=== PATIENT | female | born 1950 | race Hispanic/Latino ===

== ENCOUNTER 2019-09-27 13:21 | Observation (INO) | payer OTHER ==
[~2019-09-27] VITALS: Ht 160 cm; Wt 88.0 kg
[~2019-09-27 13:21] MED LIST: AMOXICILLIN250 MG PO; ATELVIA35 MG PO; ESTRADIOL1 MG PO; HYDROCHLOROTHIA25 MG PO; LANSOPRAZOLE30 MG PO; LOSARTAN-HCTZ1 EAC1 PO; METOPROLOL TART50 MG PO; SIMVASTATIN20 MG PO; SYNTHROID112 MCG PO; [UNRECOGNIZED DRUG - OTHER] PO
--- OUTSIDE RECORDS SUMMARY | 2019-09-27 13:25 | XMS REPORT ---
Author Author [facility] t Organization [facility] Address Unknown Phone Unavailable Care Team Providers Care Lean Leader Name Role Phone Unavailable Unavailable Payers Payer Name Policy Type Policy Number Effective Date Expiration D ate Problems This patient has no known problems. Allergies, Adverse Reactions, Alerts Allergy Name Allergy Type Status Severity Reaction(s) Onset Date Inacti ve Date Treating Clinician Comments No Known Allergies DA Active U 2016-11-03 00:00:00 Medications This patient has no known medications. Results Test Description Test Time Test Comments Text Results Atomic Results Result Comments TROPONIN-I 2019-02-19 09:10:00 TROPONIN-I (test code = TROPI) 0.051 ng/mL 0-0.045 [id number] 08:29:00* Test Item Value Reference Range Comments GLUBED (test code = GLUBED) 108 mg/dL 74-106 Perf ormed by certified robotic machine operator at [facility] ([facility] [id number] 06:10:00* Test Item Value Reference Range Comments TROPONIN-I (test code = TROPI) 0.069 ng/mL 0-0.045 R esults called to [id number] by SASCHA 02/19/19 0610Critical results verified and read back by Nurse? Y [id number] 19:50:00* Test Item Value Reference Range Comments TROPONIN-I (test code = TROPI) <0.015 ng/mL 0.00-0.056 BASIC METABOLIC [id number] 18:08:00* Test Item Value Reference Range Comments SODIUM (test code = NA) 144 mmol/L 136-145 POTASSIUM (test code = K) 3.7 mmol/L 3.5-5.1 CHLORIDE (test code = CL) 105 mmol/L 101-109 CARBON DIOXIDE (test code = CO2) 28.9 mmol/L 21-32 ANION GAP (test code = GAP) 14 mmol/L 10-20 GLUCOSE (test code = GLU) 97 mg/dL 74-106 BLOOD UREA NITROGEN (test code = BUN) 17 mg/dL 3-21 GLOMERULAR FILTRATION RATE (test code = GFR) 60 mL/min >=6 0 Estimated GFR by using Modified MDRD formula.Chronic kidney disease is defined as either kidney damageor GFR <60 mL/min/1.73 m2 for >3 months. CREATININE (test code = CREAT) 0.93 mg/dL 0.55-1.3 BUN/CREATININE RATIO (test code = BUN/CREA) 18.3 10-2 0 CALCIUM (test code = CA) 9.2 mg/dL 8.4-10.2 CBC W/AUTO [id number] 18:01:00* Test Item Value Reference Range Comments WHITE BLOOD CELL (test code = WBC) 8.8 K/mm3 4.5-12.5 RED BLOOD CELL (test code = RBC) 4.59 mill/mm3 3.7-5.2 HEMOGLOBIN (test code = HGB) 13.9 gram/dL 11.5-15.5 HEMATOCRIT (test code = HCT) 43.4 % 36.0-46.0 MEAN CELL VOLUME (test code = MCV) 94.6 fL 80-98 MEAN CELL HGB (test code = MCH) 30.3 picogram 27.0-33.0 MEAN CELL HGB CONCETRATION (test code = MCHC) 32.0 gram/dL 33 .0-36.0 RED CELL DISTRIBUTION WIDTH (test code = RDW) 13.2 % 11 .6-16.2 RED CELL DISTRIBUTION WIDTH SD (test code = RDW-SD) 46.7 fL 37.0-51.0 PLATELET COUNT (test code = PLT) 273 K/mm3 150-450 MEAN PLATELET VOLUME (test code = MPV) 10.3 fL 6.7-11.0 NEUTROPHIL % (test code = NT%) 60.2 % 39.0-69.0 LYMPHOCYTE % (test code = LY%) 27.9 % 25.0-55.0 MONOCYTE % (test code = MO%) 10.0 % 0.0-10.0 EOSINOPHIL % (test code = EO%) 1.5 % 0.0-5.0 BASOPHIL % (test code = BA%) 0.3 % 0.0-1.0 NEUTROPHIL # (test code = NT#) 5.32 K/mm3 1.8-7.7 LYMPHOCYTE # (test code = LY#) 2.47 K/mm3 1.0-5.0 MONOCYTE # (test code = MO#) 0.88 K/mm3 0-0.8 EOSINOPHIL # (test code = EO#) 0.13 K/mm3 0.0-0.5 BASOPHIL # (test code = BA#) 0.03 K/mm3 0.0-0.2 MANUAL DIFF REQUIRED (test code = MDIFF) NO - CT HEAD/BRAIN W/O [id number] 17:31:00 Name: SIDNEY WHITE [facility] : 1950 Age/S: 69 / F [address] [facility] Unit #: [id number] Loc: [place]andra Zimmer [address] Phys: Rivera Jhaveri MD Acct: [id number] Dis Date: Status: PRE ER PHONE #: [phone] Exam Date: 02/18/2019 1725 FAX #: [phone] Reason: headache EXAMS: CPT CODE: [id number] CT HEAD/BRAIN W/O CONT [id number] EXAM: CT of the head without contrast; INFORMATION: Headache; TECHNIQUE AND FINDINGS: CT dose reduction protocol; 2.5 mm axial scans. There is no evidence of intra or extra-axial hemorrhage, mass lesions or midline shift. Minimal periventricular hypodensities; otherwise, unremarkable zabala/white matter differentiation. Ventricles are symmetric and of normal diameter; sulci and basilar cisterns are intact. The calvarium is intact. IMPRESSION: 1. No evidence of intracranial hemorrhage or acute territorial infarction. 2. Minimal chronic ischemic white matter changes. at 1731 Reported and signed by: Martin Yoon M.D. CC: Rivera Jhaveri MD Technologist:Alicja Fletcher CTDI: DLP: Trnscb Date/Time: 02/18/2019 (1058) Marjorie Orig Print D/T: S: 02/18/2019 (7370) PAGE 1 Signed Report
[2019-09-27] MEDS ORDERED: ASPIRIN 81 MG CHEW TAB PO ONE (14:00)
[2019-09-27 14:22] LABS: BASOPHILS % 0.3 % (0.0-1.0); EOSINOPHILS # (AUTO) 0.1 (0.0-0.4); HEMATOCRIT 40.3 % (34.2-44.1); HEMOGLOBIN 13.3 g/dL (12.0-16.0); LYMPHOCYTES # (AUTO) 3.7 (1.0-3.2); LYMPHOCYTES % 30.1 % (18.0-39.1); MEAN CORPUSCULAR HEMOGLOBIN 31.3 pg (28-32); MEAN CORPUSCULAR VOLUME 94.8 fL (81-99); MONOCYTES # (AUTO) 1.3 (0.2-0.8); MONOCYTES % 10.8 % (4.4-11.3); NEUTROPHILS % 57.3 % (38.7-80.0); PLATELET COUNT 297 x10e3/uL (140-360); RED BLOOD COUNT 4.25 x10e6/uL (3.6-5.1); RED CELL DISTRIBUTION WIDTH 14.2 % (11.7-14.4)
[2019-09-27 14:36] LABS: INR 0.86; PROTHROMBIN TIME 12.2 seconds (11.9-14.5)
[2019-09-27 14:37] LABS: PARTIAL THROMBOPLASTIN TIME 26.8 seconds (23.8-35.5)
[2019-09-27] MEDS ORDERED: DETROL LA4 MG PO (15:00)
[2019-09-27] MEDS ORDERED: ASPIR 8181 MG PO (15:00)
[2019-09-27] MEDS ORDERED: IRBESARTAN-HCT1 EACH PO (15:00)
[2019-09-27] MEDS ORDERED: PEPCID20 MG PO (15:00)
[2019-09-27] MEDS ORDERED: ATORVASTATIN CA20 MG PO (15:00)
[2019-09-27] MEDS ORDERED: ONDANSETRON HCL INJ 2MG/ML 2ML 2 MG/ML VIAL IV PRN (15:15)
[2019-09-27] MEDS ORDERED: NITROGLYCERIN 0.4 MG SUBL SL PRN (15:15)
[2019-09-27 15:17] LABS: ALANINE AMINOTRANSFERASE 16 IU/L (0-55); ALBUMIN 3.6 g/dL (3.5-5.0); ALKALINE PHOSPHATASE 69 IU/L (40-150); ANION GAP 14.6 mmol/L (8-16); BLOOD UREA NITROGEN 15 mg/dL (7-26); BUN/CREATININE RATIO 17 (6-25); CALCIUM 9.8 mg/dL (8.4-10.2); CARBON DIOXIDE 26 mmol/L (22-29); CHLORIDE 102 mmol/L (98-107); CREATINE KINASE 81 IU/L (29-168); CREATININE, SERUM 0.88 mg/dL (0.57-1.11); EST GLOMERULAR FILTRATION RATE > 60 ML/MIN (60-); GLUCOSE 95 mg/dL (74-118); POTASSIUM 3.6 mmol/L (3.5-5.1); SODIUM 139 mmol/L (136-145)
--- NOTE | 2019-09-27 15:34 | Diagnostic Imaging Report ---
EXAMINATION: Head CT HISTORY: Blurry vision, hypertension COMPARISON: None. TECHNIQUE: Helical axial images of the head were obtained. Reformatted coronal and sagittal images from the axial data. Dose modulation, iterative reconstruction, and/or weight based adjustment of the mA/kV was utilized to reduce the radiation dose to as low as reasonably achievable. Image quality: Motion/streaking artifact limits the evaluation of the skull base and posterior cranial fossa. FINDINGS: Parenchyma: 1. No abnormal densities. 2. No mass or hemorrhage. No CT evidence of acute territorial vascular insult. Extra-axial spaces:No abnormal density. No extra-axial fluid collections Brain volume: Normal for age. Ventricles: No hydrocephalus or displacement. Arteries: No density suggestive of thrombus. Dural sinuses: No abnormal density. Foramen magnum: No mass, Chiari malformation, or basilar invagination. Sella: No obvious mass. Paranasal/mastoid sinuses: Imaged portions unremarkable. Skull/Scalp: No lytic or blastic lesions. No fractures. IMPRESSION: No intracranial abnormalities, particularly no hemorrhage. Signed by: Dr. Anabell Munroe M.D. on 09/27/2019 3:30 PM
--- NOTE | 2019-09-27 15:34 | Diagnostic Imaging Report ---
EXAMINATION: CHEST SINGLE (PORTABLE) INDICATION: Hypertension COMPARISON: None FINDINGS: LINES/TUBES:EKG leads overlie the chest. LUNGS:The lungs are well-inflated. No focal consolidation or pulmonary edema. PLEURA:No pleural effusion or pneumothorax. MEDIASTINUM:The cardiomediastinal silhouette appears normal in size and shape. BONES/SOFT TISSUES:No acute osseous injury. ABDOMEN:No free air under the diaphragm. IMPRESSION: No focal pneumonia or pulmonary edema. Signed by: Samira Mcclain MD on 09/27/2019 3:31 PM
[2019-09-27 15:59] LABS: THYROID STIMULATING HORMONE 0.457 uIU/mL (0.350-4.940)
[2019-09-27 16:35] VITALS: BP 151/91
[2019-09-27 16:40] VITALS: BP 150/88
--- NOTE | 2019-09-27 16:40 | NUR ---
Pt received from ER at this time. Pt is aox3 and mostly [place] speaking. Denies any pain at this time. 0 s/s of acute distress noted. Pt is ambulatory, skin is intact.
[2019-09-27] MEDS ORDERED: METOPROLOL TARTRATE 50 MG TAB PO SCH (17:00)
[2019-09-27 18:15] LABS: CREATINE KINASE 77 IU/L (29-168)
[2019-09-27] MEDS: FAMOTIDINE 20 MG TAB PO SCH (18:45)
--- NOTE | 2019-09-27 19:00 | NUR ---
RECEIVED PATIENT IN BEDSIDE REPORT. PATIENT A&OX3. SPEAKS THAI, BUT UNDERSTANDS AND CAN COMMUNICATE IN INDONESIAN. NO PAIN REPORTED. NO S&S OF DISTRESS NOTED. BED LOCKED IN LOWEST POSITION, SIDE RAILS UPX2, CALL LIGHT IN REACH.
[2019-09-27 20:00] VITALS: BP 153/79
[2019-09-27 20:39] VITALS: BP 153/79
[2019-09-27] MEDS ORDERED: ATORVASTATIN 20 MG TAB PO SCH (21:00)
[2019-09-27] MEDS: METOPROLOL TARTRATE 50 MG TAB PO SCH (21:41)
--- NOTE | 2019-09-27 23:11 | Consultation ---
DATE OF CONSULTATION: 09/27/2019 Cardiology Consultation REASON FOR CONSULTATION: Chest pain. HISTORY OF PRESENT ILLNESS: A 69-year-old woman with history of anxiety, impaired fasting glucose/prediabetes, hyperlipidemia, hypertension, morbid obesity, presents with complaints of left upper extremity discomfort in the setting of elevated blood pressure reads. Reportedly, has systolic blood pressure over 200 at home. She reports labile blood pressure, which she somewhat correlates to anxiety episodes. She has had previous reassuring readings at her PCP's office according to her description. She has no other complaints at this time. She has currently no chest discomfort or upper extremity discomfort. She denies any exertional symptoms. ALLERGIES: NO KNOWN DRUG ALLERGIES. PAST MEDICAL HISTORY: Hypertension, hypothyroidism, dyslipidemia, history of overactive bladder. SURGICAL HISTORY: Cholecystectomy and hysterectomy. FAMILY HISTORY: Noncontributory. REVIEW OF SYSTEMS: A 12-system review is negative except for as per HPI. PHYSICAL EXAMINATION: VITAL SIGNS: Temperature 98.1, heart rate 80, respiratory rate 20, blood pressure 151/91, O2 saturation 97% on room air. GENERAL: In no acute distress, alert. NECK: No JVD. CHEST: Clear to auscultation. CARDIOVASCULAR: Regular rate and rhythm. Normal S1 and S2. No S3. No S4. No murmurs. No rubs. ABDOMEN: Soft. Bowel sounds positive. EXTREMITIES: No edema. CARDIOVASCULAR MEDICATIONS: Reviewed. Metoprolol tartrate 50 mg b.i.d., hydrochlorothiazide 12.5 mg daily, Avapro 150 mg daily, atorvastatin 20 mg every night at bedtime, aspirin 81 mg daily, and nitroglycerin p.r.n. STUDIES: Reviewed. White blood cells 12.1, hemoglobin 13.3, platelets 297. PT 12.2, INR 0.86, PTT 26.8. Sodium 139, potassium 3.6, chloride 102, bicarbonate 26, BUN 15, creatinine 0.8, glucose 95, calcium 9.8. Serial troponins negative. AST 20, ALT 16, TSH 0.4. ASSESSMENT AND PLAN: 1. Left upper extremity atypical discomfort/chest discomfort in the setting of uncontrolled hypertension. 2. Anxiety. 3. Impaired fasting glucose. 4. Dyslipidemia. 5. Morbid obesity. Recommend: 1. The patient has ruled out with serial cardiac biomarkers for AMI. Obtain echocardiogram. Continue rest of cardiovascular medications with the following adjustment, titrate metoprolol to 50 mg t.i.d. 2. Outpatient stress test advised. MD FER Ceballos/FADAI /[id number]
[2019-09-28] VITALS: BP 159/91
[2019-09-28 02:50] LABS: CREATINE KINASE 74 IU/L (29-168)
[2019-09-28 04:00] VITALS: BP 156/98
[2019-09-28 05:37] LABS: BASOPHILS % 0.4 % (0.0-1.0); EOSINOPHILS # (AUTO) 0.1 (0.0-0.4); EOSINOPHILS % 0.9 % (0.0-6.0); HEMATOCRIT 40.3 % (34.2-44.1); HEMOGLOBIN 13.3 g/dL (12.0-16.0); LYMPHOCYTES # (AUTO) 3.2 (1.0-3.2); LYMPHOCYTES % 31.3 % (18.0-39.1); MEAN CORPUSCULAR HEMOGLOBIN 31.4 pg (28-32); MONOCYTES # (AUTO) 1.2 (0.2-0.8); MONOCYTES % 11.5 % (4.4-11.3); NEUTROPHILS # (AUTO) 5.7 (2.1-6.9); NEUTROPHILS % 55.5 % (38.7-80.0); PLATELET COUNT 296 x10e3/uL (140-360); RED BLOOD COUNT 4.24 x10e6/uL (3.6-5.1); RED CELL DISTRIBUTION WIDTH 14.1 % (11.7-14.4)
[2019-09-28 06:00] LABS: CREATINE KINASE 72 IU/L (29-168)
[2019-09-28] MEDS ORDERED: LEVOTHYROXINE SODIUM 112 MCG TAB PO SCH (06:00)
[2019-09-28 06:05] LABS: ALBUMIN 3.6 g/dL (3.5-5.0); ANION GAP 13.2 mmol/L (8-16); CALCIUM 10.2 mg/dL (8.4-10.2); CHOL/HDL RATIO 4.3 (3.0-3.6); CREATININE, SERUM 0.95 mg/dL (0.57-1.11); POTASSIUM 4.2 mmol/L (3.5-5.1)
--- NOTE | 2019-09-28 07:00 | NUR ---
RECEIVED PATIENT AWAKE AT THIS TIME. NO S/S OF DISTRESS. BED LOW, WHEELS LOCKED, SIDE RAILS X2. CALL LIGHT IN REACH WILL CONTINUE TO MONITOR PATIENT.
[2019-09-28 08:00] VITALS: BP 172/103
[2019-09-28] MEDS: METOPROLOL TARTRATE 50 MG TAB PO SCH (08:04)
[2019-09-28] MEDS: FAMOTIDINE 20 MG TAB PO SCH (08:04)
[2019-09-28 08:37] VITALS: BP 172/103
[2019-09-28] MEDS ORDERED: HYDROCHLOROTHIAZIDE 25 MG TAB PO SCH (09:00)
[2019-09-28] MEDS ORDERED: ASPIRIN 81 MG CHEW TAB PO SCH (09:00)
[2019-09-28] MEDS ORDERED: ASPIRIN 81 MG ENTERIC COATED PO SCH (09:00)
[2019-09-28] MEDS ORDERED: TOLTERODINE TARTRATE 2 MG CAPCR PO SCH (09:00)
[2019-09-28] MEDS ORDERED: IRBESARTAN 150 MG TAB PO SCH (09:00)
[2019-09-28] MEDS ORDERED: NIFEDIPINE CR 30 MG TAB PO SCH (09:15)
--- NOTE | 2019-09-28 09:43 | Discharge Summary ---
PRIMARY CARE PHYSICIAN: Eileen Crawley M.D. COAL HAULER OPERATOR: Jony Broussard M.D. FINAL DIAGNOSES: 1. Hypertensive urgency associated with chest pain. 2. Atypical chest pain. 3. Possible anxiety disorder. SUMMARY: This is a 69-year-old female with some atypical chest pain. Cardiac enzyme has been negative x3 sets. Systolic blood pressure in the 170. The patient has home medication adjustment. She will start on nifedipine XL 30 mg once a day. She will resume her usual home medication. The patient is otherwise stable. She will follow up with Dr. Villa for outpatient stress test. The patient to follow up with Dr. Arellano as her primary care physician for blood pressure medication adjustment in medication reconciliation. MD DUSTIN Garcia/TOANL /[id number]
[2019-09-28] MEDS ORDERED: NIFEDIPINE ER30 M1 PO (10:09)
--- NOTE | 2019-09-28 10:26 | NUR ---
REMOVED PATIENTS IV. CATHETER TIP INTACT AND PRESSURE DRESSING APPLIED.
--- NOTE | 2019-09-28 10:41 | NUR ---
PATIENT DISCHARGED FROM FACILITY. PATIENT GATHERED ALL PERSONAL BELONGINGS, DISCHARGE INSTRUCTIONS AND FOLLOW UP INFORMATION. LEFT UNIT IN WHEELCHAIR AND WENT HOME VIA PRIVATE AUTO. NO S/S OF DISTRESS LEAVING FACILITY.
== END 2019-09-28 10:40 | disposition home or self-care (01) ==
LOC: ER 13:21 → ERHOLD 15:12 → MED/SURG 16:40
PROVIDERS: ADMIT Internal Medicine; ATTEND Internal Medicine
DX: I16.0 Hypertensive urgency (principal); R07.89 Other chest pain; F41.9 Anxiety disorder, unspecified; E78.5 Hyperlipidemia, unspecified; R73.02 Impaired glucose tolerance (oral); E66.01 Morbid (severe) obesity due to excess calories; Z68.34 Body mass index [BMI] 34.0-34.9, adult; E03.9 Hypothyroidism, unspecified
CPT/HCPCS: 36415 ×2; 70450; 71045; 80053 ×2; 80061; 82550 ×2; 82553 ×2; 84436; 84443; 84479; 84484 ×2; 85025 ×2; 85610; 85730; 93005; 93306; 99284; G0378 ×2